=== PATIENT | female | born 1960 | race Caucasian/White ===

== ENCOUNTER 2021-03-27 20:50 | Emergency (ER) | payer OTHER ==
[~2021-03-27] VITALS: Ht 167.6 cm; Wt 123.4 kg
[~2021-03-27 20:50] MED LIST: ADDERALL 10 MG10 MG; BAYER CHEWABLE81 MG PO; CARISOPRODOL 3350 MG PO; CLARITIN5 MG; CLEOCIN HCL150 MG PO; DIABETA 5MG TABL5 MG; LEVEMIR; LORTABELXR PO; METFORMIN HCL500 M2; NAPROSYN500 MG PO; NORCO 5-325 TA1 EACH PO; OXYBUTYNIN 5 MG5 M1; PREDNISONE50 MG PO; PROAIR HFA8.5 GM IH; REQUIP3 MG; STRESS FORMULA; ZANTAC 7575 MG; ZPAK PO
[2021-03-27 21:00] VITALS: BP 134/63
== END 2021-03-27 23:13 | disposition left against medical advice (07) ==
LOC: ER 20:50
DX: I48.91 Unspecified atrial fibrillation (principal); R00.2 Palpitations; R51.9 Headache, unspecified; R07.89 Other chest pain; R06.02 Shortness of breath; E78.00 Pure hypercholesterolemia, unspecified; E11.9 Type 2 diabetes mellitus without complications; J44.9 Chronic obstructive pulmonary disease, unspecified; M19.90 Unspecified osteoarthritis, unspecified site; Z88.6 Allergy status to analgesic agent; Z53.21 Procedure and treatment not carried out due to patient leaving prior to being seen by health care provider; Z88.7 Allergy status to serum and vaccine; Z88.2 Allergy status to sulfonamides; Z88.8 Allergy status to other drugs, medicaments and biological substances